=== PATIENT | male | born 1970 | race Caucasian/White ===

== ENCOUNTER 2019-03-20 19:42 | Inpatient (IN) | payer OTHER ==
[~2019-03-20] VITALS: Ht 182.9 cm; Wt 87.5 kg
[~2019-03-20 19:42] MED LIST: AZITHROMYCIN 2250 MG PO; BACTRIM DS TAB1 EACH PO; BACTROBAN CREAM30 G1 TOP; BACTROBAN CREAM30 GM TOP; CIALIS5 MG PO; ROBAXIN 750 MG750 M1 PO; ULTRAM 50MG TAB50 MG PO; WELLBUTRIN SR200 MG PO
[2019-03-20 19:57] VITALS: BP 142/85
[2019-03-20] MEDS ORDERED: WELLBUTRIN SR150 MG PO (20:02)
[2019-03-20 20:35] LABS: URINE BILIRUBIN NEGATIVE (Negative); URINE BLOOD TRACE (Negative); URINE CLARITY CLEAR; URINE COLOR YELLOW; URINE GLUCOSE-RANDOM NEGATIVE (Negative); URINE KETONES NEGATIVE (Negative); URINE LEUKOCYTES-REFLEX NEGATIVE (Negative); URINE PROTEIN NEGATIVE (Negative); URINE UROBILINOGEN 0.2 E.U./dl (0.2-1.0)
[2019-03-20 20:36] LABS: URINE NITRITE-REFLEX POSITIVE (Negative)
[2019-03-20 20:41] LABS: BACTERIA-REFLEX >30 Many /HPF (None Seen)
[2019-03-20 20:42] LABS: AMP/METHAMP Negative (Negative); BARBITURATES Negative (Negative); BENZODIAZEPINES Negative (Negative); COCAINE Negative (Negative); METHADONE Negative (Negative); OPIATES Negative (Negative); PCP Negative (Negative); THC Negative (Negative)
[2019-03-20 20:42] LABS: AMORPHOUS URATES Few /LPF (None Seen); CASTS None Seen /LPF (None Seen); MUCUS None Seen strn/LPF (None Seen); SQUAMOUS NONE SEEN /LPF (0-3); URINE RBC 0-2 Rare /HPF (0-2)
[2019-03-20 20:43] LABS: URINE WBC-REFLEX None Seen /HPF (0-5)
[2019-03-20 21:07] LABS: NUCLEATED RBCS 0 /100WBC
[2019-03-20 21:08] LABS: ABSOLUTE EOSINOPHILS 0.2 thou/uL (0.0-0.7); ABSOLUTE LYMPHOCYTES 1.5 thou/uL (0.8-5.3); ABSOLUTE MONOCYTES 1.7 thou/uL (0.0-1.2); ABSOLUTE NEUTROPHILS 7.7 thou/uL (1.6-8.1); BASOPHILS 0.4 %; EOSINOPHILS 1.6 %; HEMATOCRIT 38.4 % (42.0-52.0); HEMOGLOBIN 13.3 gm/dL (14.0-18.0); LYMPHOCYTES 13.2 %; MCH 30.8 pg (26.0-34.0); MCHC 34.5 g/dL (28.0-37.0); MCV 89.3 fL (80.0-100.0); MONOCYTES 15.3 %; MPV 7.9 fl. (7.2-11.1); PLATELET COUNT* 210 thou/uL (150-400); POLYS 69.5 %; RDW-CV 13.8 % (10.5-14.5); WBC 11.1 thou/uL (4.0-11.0)
[2019-03-20 21:18] LABS: CREATININE 1.1 mg/dL (0.6-1.3); POTASSIUM 3.6 mmol/L (3.5-5.1)
[2019-03-20 21:22] LABS: ALBUMIN 3.1 g/dL (3.4-5.0); TOTAL BILIRUBIN 0.4 mg/dL (<0.1-1.0); TOTAL PROTEIN 7.5 g/dL (6.4-8.2)
[2019-03-20 21:32] LABS: BE 2.8 mmol/L (-2 to +3); PCO2 45.5 mmHg (35.0-45.0); PO2 70.2 mmHg (75.0-100.0); pH 7.408 (7.340-7.450)
[2019-03-20 23:02] VITALS: BP 110/70
[2019-03-20 23:15] VITALS: BP 139/77
--- NOTE | 2019-03-21 01:16 | NUR ---
PT ADMITTED TO ROOM [address] [facility] ER. RECIEVED REPORT FROM [facility] NURSE. PT ALERT AND ORIENTED. . MULTIPLE WOUNDS. PT ON CONTACT ISOLATION. PICTURES TAKEN OF WOUNDS. ADMISSION HX AND ASSESSMENT DOCUMENTED. FALL PRECAUTION IN PLACE DUE RECENT FALLS. PT SAYS HE FEELS INFECTION IS CAUSING UNSTEADY GAIT FOR HIM. PT ON STANDBY ASSIST. CALL LIGHT WITHIN REACH. HOURLY ORUNDINGS MADE. WILL CONTINUE TO MONITOR.
--- NOTE | 2019-03-21 05:23 | NUR ---
PT ALERT AND ORIENTED. VSS ON RA. PT SLEPT THROUGH SHIFT. LFA IV WITH NS @ 100. FALL PRECAUTION IN PLACE. NO PAIN MED GIVEN THIS SHIFT YET PT HAS BEEN SLEEPING. WILL GIVE NEEDED. CALL LIGHT WITHIN REACH. HOURLY ROUNDINGS MADE. WILL CALL IN ID CONSULT THIS AM. WILL CONTINUE PALN OF CARE.
--- NOTE | 2019-03-21 05:49 | NUR ---
PT ALERT AND ORIENTED. VSS ON RA. PT SLEPT THROUGH SHIFT. NO PAIN MEDS GIVEN YET THIS SHIFT. ID CONSULT CALLED IN. PHOTOS OF MULTIPLE BODY WOUNDS TAKEN AND DOCUMENTED. FALL PRECUATION IN PLACE PT HAVE HAD RECENT FALLS. PT ON STANDYBY ASSIST. ISOLATION PRECAUTION IN PLACE UDE TO POSSIBILITY OF WOUNDS BEING INFECTED. CALL LIGHT WITHIN REACH. HOURLY ROUNDINGS MADE. WILL CONTINUE TO MOINTOR.
[2019-03-21 07:50] VITALS: BP 113/54
[2019-03-21 16:00] VITALS: BP 112/67
--- NOTE | 2019-03-21 16:28 | NUR ---
WOUND CARE NOTE: AEROBIC AND ANAEROBIC CULTURES OBTAINED OF LESION TO THE BACK OF HIS NECK.
--- NOTE | 2019-03-21 17:33 | NUR ---
PATIENT RESTING IN BED. PATIENT HAS COMPLAINTS OF PAIN TO WOUNDS, TREATED ADEQUATELY WITH MORPHINE. CULTURES TAKEN BY WOUND NURSE AND SENT TO LAB. BIOPSY SCHEDULED FOR TOMORROW TO BE DONE BY DR GARZA AT BEDSIDE. PATIENT HAS SLEPT MOST OF DAY. PATIENT HAS GOOD APPETITE. PATIENT DENIES ANY NEEDS AT THIS TIME. CALL LIGHT WITHIN REACH.
[2019-03-21 20:10] VITALS: BP 135/76
[2019-03-21 23:08] LABS: HEPATITIS B SURFACE AG Negative (Negative)
[2019-03-22 02:07] LABS: HIV-1/HIV-2 ANTIBODY Non Reactive (Non Reactive)
[2019-03-22 03:08] LABS: IgA 125 mg/dL (90-386); IgG 1157 mg/dL (700-1600); IgM 90 mg/dL (20-172)
--- NOTE | 2019-03-22 05:07 | NUR ---
PT ALERT AND ORIENTED. VSS ON RA. ASSESSMENT DOCUMENTED. PT SLEPT MOST OF SHIFT. AWAITING URINE SAMPLE FOR LAB. ISOLATION PRECAUTION IN PLACE. BLOOD CULTURE CAME BACK THIS AM WITH GRAM POSITIVE SIOBHAN. DR RAMIRES NOTIFIED. NO PAIN MEDS GIVEN YET THIS SHIFT. CALL LIGHT WITHIN REACH. HOURLY ROUNDINGS MADE. WILL CONTINUE TO MONITOR.
[2019-03-22 05:39] LABS: HEMATOCRIT 41.2 % (42.0-52.0); HEMOGLOBIN 13.9 gm/dL (14.0-18.0); MCH 30.4 pg (26.0-34.0); MCHC 33.6 g/dL (28.0-37.0); MCV 90.4 fL (80.0-100.0); RBC 4.56 mil/uL (4.50-6.00); RDW-CV 14.1 % (10.5-14.5); WBC 6.4 thou/uL (4.0-11.0)
[2019-03-22 05:53] LABS: CALCIUM 9.6 mg/dL (8.5-10.1); MAGNESIUM 2.1 mg/dL (1.8-2.4); POTASSIUM 4.1 mmol/L (3.5-5.1)
--- NOTE | 2019-03-22 07:37 | CON ---
[address] [address] CONSULTATION Name: ISAAC LIRA Room: [address] IN .R.#: [id number] Admission: 03/20/19 Attend Phys: Darek Garnett Discharge: Date of : 70 Report #: [id number] THIS REPORT FOR: //name// CC: EVARISTO physician/PCP Omar Gregory DATE OF SERVICE: 03/21/2019 INFECTIOUS DISEASE CONSULTATION ATTENDING PHYSICIAN: Omar Gregory DO REASON FOR EVALUATION: Generalized inflammatory eruption with varying sizes suspected infectious etiology. HISTORY OF PRESENT ILLNESS: Chart reviewed, the patient was examined. This is a 48-year-old gentleman without significant medical history who presented with extensive superficial skin lesions in varying stages excoriated some raised some more macular. He describes burning and itching. He had been on treatment with multiple medicines including Bactrim, doxycycline and clindamycin, none of which made any difference. He was given treatment for ectoparasite, scabies in particular, not clear if he has had significant fevers. He denies any significant pulmonary or gastrointestinal related complaints. In terms of past medical history, he denies any high-risk behavior, although he did call off his engagement because his fiancee at that time had been involved in possible harmful behavior. He does work, denies any particular exposure history to animals. No recent travel. ALLERGIES: PENICILLIN, WHICH CAUSES URTICARIA, CODEINE, ACETAMINOPHEN. MEDICATIONS: Includes ibuprofen, promethazine, ondansetron, bisacodyl, melatonin, morphine as needed, was given dose of vancomycin and ceftriaxone. PAST MEDICAL HISTORY: Otherwise, unremarkable. PREVIOUS SURGERIES: History of MRSA, history of endocarditis, depression, anxiety, herniated disk, chronic back pain. SOCIAL HISTORY: Smokes half pack per day. No illicit drug use. No ethanol. No high risk sexual behavior. FAMILY HISTORY: Noncontributory. REVIEW OF SYSTEMS: As above. PHYSICAL EXAMINATION: [place] [address] CONSULTATION Name: ISAAC LIRA Room: [address]#: [id number] Admission: 03/20/19 Attend Phys: Darek Garnett Discharge: Date of : 70 Report #: [id number] GENERAL: He is alert, cooperative, appropriate, mild distress secondary to the generalized discomfort. SKIN: Prominent skin lesions innumerable involving the limbs, face, the lower part of the torso, some of which are excoriated. There are no bullous lesions at this point. HEENT: Normocephalic. Extraocular muscles intact. NECK: Supple. LUNGS: Generally clear to auscultation bilaterally. HEART: Regular rate and rhythm without murmur. ABDOMEN: Soft, nontender, nondistended. EXTREMITIES: No cyanosis. GENITOURINARY: Deferred. RECTAL: Deferred. LABORATORY DATA: Blood cultures sterile thus far. ABGs: pH 7.408, pCO2 of 45.5, pO2 of 70.2 that is 88% on room air. Lactic acid 0.9. Electrolytes: Sodium 134, potassium 3.6, chloride 198, bicarbonate is 30, anion gap of 6, BUN and creatinine 13 and 1.3, glucose of 151. AST of 4.5, ALT of 56. Albumin 3.1, total protein of 7.5. Estimated GFR of 71. Chest x-ray: No acute process. CBC: White count of 11.1, H and H 13.3 and 38.4, platelets of 210 with 13.2% lymphocytes, which equated to lymphocyte total count of 1500. Urinalysis otherwise unremarkable. Drug screen unremarkable. ASSESSMENT AND PLAN: Disseminated maculopapular type eruption with varying stages some are quite large plaque-like seems less likely to me that this is infectious etiology short of something that is disseminated like an endocarditis would be concerned about other infections to discuss. We will check some serologies, HIV, syphilis. Noted plans for biopsy, I think that is an excellent idea that may give us some clue at the peripheral smear and does not look particularly consistent with a leukemic process. We will discuss with hospitalist. <ELECTRONICALLY SIGNED> By: Romero Cordova MD 03/22/19 0737 1612 [id number] Cordova MD /nt
[2019-03-22 08:00] VITALS: BP 142/72
--- NOTE | 2019-03-22 14:49 | NUR ---
Pt lives at home with dtr. No known dc needs anticipated at this time. SW/CM to remain available to assist with safe dc planning if needs arise.
[2019-03-22 16:00] VITALS: BP 129/75
--- NOTE | 2019-03-22 18:44 | NUR ---
ASSESSMENT COMPLETE. PT ALERT AND ORIENTED X4. PT HAD BEDSIDE BIOPSY DONE WITH VASCULAR DR THIS AFTERNOON. IV VANC GIVEN SCHEDULED. ECHO COMPLETED. PT GIVEN PRN MORPHINE NEEDED FOR PAIN. IV IN LEFT FA, SL. PT IS UP STANDBY ASSIST. SEE ASSESSMENT AND VITALS FOR OTHER DETAILS. CALL LIGHT WITHIN REACH, WILL CONTINUE PLAN OF CARE
--- NOTE | 2019-03-22 18:46 | 2DMMODE ---
[place] [address] 2 D/M-MODE ECHOCARDIOGRAM Name: ISAAC LIRA Room: [address] IN [facility]#: [id number] Admission: 03/20/19 Attend Phys: Omar Gregory Discharge: Date of : 70 Date of Service: 03/22/19 1846 Report #: [id number] THIS REPORT FOR: //name// APPROVED REPORT Study performed: 03/22/2019 14:13:09 EXAM: Comprehensive 2D, Doppler, and color-flow Echocardiogram Patient Location: In-Patient Room #: [facility] Status: routine BSA: 2.10 HR: 67 bpm BP: 142/72 mmHg Rhythm: NSR Other Information Study Quality: Good Indications Sepsis Fever 2D Dimensions IVSd: 11.04 (7-11mm) LVOT Diam: 20.69 (18-24mm) LVDd: 48.52 mm PWd: 11.10 (7-11mm) Ascending Ao: 27.69 (22-36mm) LVDs: 30.07 (25-40mm) Aortic Root: 31.74 mm Volumes Left Atrial Volume (Systole) LA ESV Index: 24.10 mL/m2 Aortic Valve AoV Peak Zain.: 1.71 m/s AO Peak Gr.: 11.71 mmHg LVOT Max P.45 mmHg AO Mean Gr.: 5.22 mmHg LVOT Mean P.65 mmHg LVOT Max V: 1.69 m/s AO V2 VTI: 32.71 cm LVOT Mean V: 0.97 m/s VEGA (VTI): 3.25 cm2 LVOT V1 VTI: 31.67 cm Mitral Valve E/A Ratio: 1.50 MV Decel. Time: 189.12 [place] [address] 2 D/M-MODE ECHOCARDIOGRAM Name: ISAAC LIRA Room: [address] IN [facility]#: [id number] Admission: 03/20/19 Attend Phys: Omar Gregory Discharge: Date of : 70 Date of Service: 03/22/19 1846 Report #: [id number] MV E Max Zain.: 0.91 m/s MV PHT: 54.85 ms MVA (PHT): 4.01 cm2 TDI E/Lateral E': 4.33 E/Medial E': 8.27 Medial E' Zain.: 0.11 m/s Lateral E' Zain.: 0.21 m/s Pulmonary Valve PV Peak Zain.: 1.19 m/s PV Peak Gr.: 5.71 mmHg Left Ventricle The left ventricle is normal size. There is normal LV segmental wall motion. There is normal left ventricular wall thickness. Left ventricular systolic function is normal. The left ventricular ejection fraction is within the normal range. LVEF is 60-65%. The left ventricular diastolic function is normal. Right Ventricle The right ventricle is normal size. The right ventricular systolic function is normal. Atria The left atrium size is normal. The right atrium size is normal. Aortic Valve Mild aortic valve sclerosis. Trace aortic regurgitation. There is no aortic valvular stenosis. Mitral Valve The mitral valve is normal in structure. Trace mitral regurgitation. No evidence of mitral valve stenosis. Tricuspid Valve The tricuspid valve is normal in structure. Unable to assess PA pressure. Trace tricuspid regurgitation. Pulmonic Valve The pulmonary valve is normal in structure. There is no pulmonic valvular regurgitation. Great Vessels The aortic root is normal in size. IVC is normal in size and collapses >50% [place] [address] 2 D/M-MODE ECHOCARDIOGRAM Name: ISAAC LIRA Room: [address] IN [facility]#: [id number] Admission: 03/20/19 Attend Phys: Omar Gregory Discharge: Date of : 70 Date of Service: 03/22/19 1846 Report #: [id number] Pericardium There is no pericardial effusion. <Conclusion> The left ventricle is normal size. There is normal left ventricular wall thickness. Left ventricular systolic function is normal. The left ventricular ejection fraction is within the normal range. LVEF is 60-65%. The left ventricular diastolic function is normal. The right ventricle is normal size. The left atrium size is normal. Mild aortic valve sclerosis. Trace aortic regurgitation. There is no aortic valvular stenosis. The mitral valve is normal in structure. The tricuspid valve is normal in structure. IVC is normal in size and collapses >50% with inspiration. There is no pericardial effusion. There is normal LV segmental wall motion. <ELECTRONICALLY SIGNED> By: Fly Reyna MD, FACC 03/22/191845 45 45 Fly Reyna MD, FACC /INF
[2019-03-22 20:00] VITALS: BP 118/75
[2019-03-23 05:18] LABS: CALCIUM 8.6 mg/dL (8.5-10.1); CREATININE 0.9 mg/dL (0.6-1.3); MAGNESIUM 1.8 mg/dL (1.8-2.4); POTASSIUM 4.1 mmol/L (3.5-5.1)
[2019-03-23 08:15] VITALS: BP 116/78
--- NOTE | 2019-03-23 12:51 | NUR ---
PATIENT WAS FOUND MISSING FROM ROOM AND UNIT AT 1210. NURSING SHIP RIGGER AND SECURITY INFORMED. BELONGINGS STILL IN ROOM. IV HAD BEEN REMOVED FOR SITE ROTATION, SO NO IV IN PATIENT AT TIME OF PATIENT BEING OFF UNIT. PATIENT RETURNED TO ROOM AT 1250. PATIENT WAS EDUCATED ON NOT LEAVING THE UNIT. PATIENT STATED DOCTOR TOLD HIM TO WALK AROUND. PATIENT INFORMED HE IS ONLY TO WALK AROUND UNIT AND THAT HE IS NOT TO LEAVE UNIT BY STAIRS OR ELEVATOR. PATIENT STATED UNDERSTANDING. SECURITY AND NURSING SHIP RIGGER INFORMED OF PATIENT'S RETURN TO ROOM.
--- NOTE | 2019-03-23 17:25 | NUR ---
PATIENT RESTING IN BED. PATIENT IS UP AD JUANPABLO IN ROOM. PATIENT HAS COMPLAINTS OF GENERALIZED PAIN TO WOUNDS, TREATED ADEQUATELY WITH MEDICATION. PATIENT RECEIVED IV ANTIBIOTICS ORDERED. NEW IV PLACED THIS AFTERNOON PER PATIENT REQUEST. PATIENT HAS GOOD APPETITE. PATIENT DENIES ANY NEEDS AT THIS TIME. CALL LIGHT WITHIN REACH.
[2019-03-23 17:28] VITALS: BP 117/68
[2019-03-23 20:00] VITALS: BP 119/64
[2019-03-24 05:40] LABS: CALCIUM 8.6 mg/dL (8.5-10.1); MAGNESIUM 1.7 mg/dL (1.8-2.4); POTASSIUM 4.1 mmol/L (3.5-5.1)
--- NOTE | 2019-03-24 05:54 | NUR ---
PT ALERT AND ORIENTED. VSS ON RA. UP AD JUANPABLO. ASSESSMENT DOCUMENTED. PT SLEPT WELL THIS SHIFT. PAIN MEDS GIVEN THIS SHIFT. ISOLATION PRECAUTION IN PLACE. URINE SAMPLE COLLECTED AGAIN FOR HISTOPLASMA ANTIGEN TEST. CALL LIGHT WITHIN REACH. HOURLY ROUNDINGS MADE. WILL CONTINUE TO MONITOR.
[2019-03-24 07:50] VITALS: BP 113/63
[2019-03-24 14:10] LABS: HCV QUANT BY PCR 7850000 IU/mL (())
[2019-03-24 16:33] VITALS: BP 139/76
--- NOTE | 2019-03-24 17:43 | NUR ---
PATIENT RESTING IN BED. PATIENT IS UP AD JUANPABLO IN ROOM AND WALKS IN HALLS. PATIENT ADMITTED TO SMOKING IN [place]. SECURITY SPOKE WITH PATIENT INFORMING HIM NOT TO SMOKE IN HOSPITAL. PATIENT HAS HAD COMPLAINTS OF GENERAL PAIN TO WOUNDS, TREATED ADEQUATELY WITH MORPHINE. PATIENT DENIES ANY NEEDS AT THIS TIME. CALL LIGHT WITHIN REACH.
[2019-03-24 20:30] VITALS: BP 125/68
--- NOTE | 2019-03-25 05:27 | NUR ---
PT SLEPT FAIRLY WELL OVERNIGHT. UP AD JUANPABLO IN ROOM VOIDING WITHOUT DIFFICULTY. LAC IV SL, ABX GIVEN ORDERED. AM LAB DRAWN. REMAINS ON CONTACT ISOLATION, WOUND CULTURE PENDING. RECEIVING MORPHINE FOR COMPLAINTS OF PAIN WITH GOOD RESULT. ABLE TO USE CALL LITE AND MAKE NEEDS KNOWN.
[2019-03-25 07:19] VITALS: BP 126/73
[2019-03-25 10:40] VITALS: BP 125/68
[2019-03-25 12:10] LABS: ANA INTERPRETATION Negative (Negative)
[2019-03-25 16:00] VITALS: BP 134/81
--- NOTE | 2019-03-25 17:24 | NUR ---
ASSESSMENT COMPLETE. PT ALERT AND ORIENTED X4. PT IS UP AD JUANPABLO. ABX GIVEN SCHEDULED. ISOLATION DC'D PER INFECTIOUS NURSE PROTOCOL. PT HAD SHOWER THIS EVENING. PRN PAIN MEDICATION GIVEN NEEDED. DENIES N/V. TOLERATING MEALS. SEE ASSESSMENT AND VITALS FOR OTHER DETAILS. CALL LIGHT WITHIN REACH, WILL CONTINUE PLAN OF CARE
[2019-03-25 19:45] VITALS: BP 117/80
--- NOTE | 2019-03-26 06:18 | NUR ---
PT HAS SLEPT OFF AND ON OVERNIGHT, UP AMBULATING IN HALLS WITH STEADY GAIT. RECEIVING PAIN MED X2 THIS SHIFT WITH GOOD RELIEF. LAC SL IV, ABX GIVEN ORDERED. AM LABS. PT ANTICIPATING DISCHARGE HOME TODAY TO FOLLOW UP OUTPT. ABLE TO USE CALL LITE AND MAKE NEEDS KNOWN.
[2019-03-26 08:10] VITALS: BP 119/79
[2019-03-26] MEDS ORDERED: TRAMADOL 50 MG50 MG PO (08:24)
[2019-03-26] MEDS ORDERED: KEFLEX500 M1 PO (08:24)
[2019-03-26 13:13] VITALS: BP 125/68
[2019-03-26 14:08] VITALS: BP 125/68
--- NOTE | 2019-03-26 14:23 | NUR ---
PATIENT ALERT AND ORIENTED X4. PATIENT AMBULATING IN HALLWAY THROUGHOUT SHIFT. PATIENT ASKED IF HE COULD DRIVE HIMSELF HOME. RN PROVIDED EDUCATION ON NOT DRIVING DUE TO PAIN MEDICATIONS. PATIENT REPORTED HIS FREIND WOULD PICK HIM UP. IV REMOVED. PATIENT GIVEN ALL DISCHARGE PAPERWORK AND PRESCRIPTIONS. RN REPORTED WE WILL WALK PATIENT OUT WHEN HIS RIDE ARRIVES. PATIENT LEFT UNIT WITHOUT NOTIFYING STAFF. NURSING DIRECTOR OF EPIDEMIOLOGY AWARE.
[2019-03-26 14:27] VITALS: BP 125/68
[2019-03-26 15:33] VITALS: BP 125/68
--- NOTE | 2019-03-29 18:06 | PATH ---
[address] [address] PATHOLOGY RPT PROCEDURE Name: WILEY LIRA Room: [address] IN M.R.#: [id number] Admission: 03/20/19 Date of : 70 Discharge: 03/26/19 Report #: [id number] Path Case #: [id number] [facility] Accession Number: [id number] . 01 Material submitted: . body - MULTIPLE SKIN ABSCESSES . 01 Clinical history: . Multiple skin abscesses with cellulitis and fever . 02 Diagnosis: Multiple pieces of skin and soft tissue, designated as "body": - Fat necrosis with acute and chronic inflammation and exuberant overlying scale crust, fragmented. There is no evidence of malignancy. (See comment). (OLIVER:pooja; 03/29/2019) MBR 03/29/2019 1034 Local . 02 Comment: On review of the patient's clinic notes, the biopsy is designated "excision of skin lesions right medial calf for pathology". . The case was evaluated with a PAS stain for fungus, performed with an appropriate positive control, which is negative. . A specific diagnosis cannot be rendered on the material submitted. Nonspecific findings of fat necrosis with acute and chronic inflammation and overlying exuberant scale crust is present. The dermal changes may be secondary to an adjacent ulceration. Please correlate clinically and with culture results. . This case has also been co-reviewed by a second board-certified dermatopathologist, Dr. Cancino, with consensus. . (SAS:prosthetic lab technician; 03/29/2019) . Special stain: PAS fungus: Negative . 02 Electronically signed: . Augustina Kaur MD, Pathologist NPI- [id number] . 01 Gross description: . The specimen is received in formalin, labeled "Wiley Liraflorian". The specimen is additionally labeled on the requisition as, "multiple skin abscesses". Per the verification form, no specific source is listed except body/skin". Received are multiple segments of dusky poole-brown possible skin measuring 1.5 x 1.4 x 0.5 cm in [place] [address] PATHOLOGY RPT PROCEDURE Name: WILEY LIRA Room: [address] IN M.R.#: [id number] Admission: 03/20/19 Date of : 70 Discharge: 03/26/19 Report #: [id number] Path Case #: [id number] specimen is submitted entirely in cassette A1. (CAA; 03/26/2019) QAC/QAC 03/26/2019 0947 Local . 02 Pathologist provided ICD-10: L08.9, R23.8 . 02 CPT . 979363, 605085 Specimen Comment: A courtesy copy of this report has been sent to [phone] Specimen Comment: Report sent to Performed at: 01 [facility] [address], [place] [id number] MD Fransisco More MD Phone: [phone] Performed at: [address] [facility] [address] [place] [id number] MD Augustina Kaur MD Phone: [phone]
== END 2019-03-26 14:30 | disposition home or self-care (01) | DRG 854 ==
LOC: M.ERS 19:42 → M.TBA-ER 22:09 → M.3W 22:09
PROVIDERS: Internal Medicine; Personal Emergency Response Attendant; Specialist; ADMIT Internal Medicine
PROC: 0QBB0ZX Excision of Right Lower Femur, Open Approach, Diagnostic (ICD-10-PCS; principal; 2019-03-22)
DX: A40.0 Sepsis due to streptococcus, group A (principal); N39.0 Urinary tract infection, site not specified; E44.1 Mild protein-calorie malnutrition; L03.115 Cellulitis of right lower limb; G89.29 Other chronic pain; M54.9 Dorsalgia, unspecified; F17.210 Nicotine dependence, cigarettes, uncomplicated; F32.9 Major depressive disorder, single episode, unspecified; F41.9 Anxiety disorder, unspecified; M47.892 Other spondylosis, cervical region; B19.20 Unspecified viral hepatitis C without hepatic coma; D89.1 Cryoglobulinemia; B96.89 Other specified bacterial agents as the cause of diseases classified elsewhere; Z88.6 Allergy status to analgesic agent; Z88.0 Allergy status to penicillin; Z88.8 Allergy status to other drugs, medicaments and biological substances; Z86.14 Personal history of Methicillin resistant Staphylococcus aureus infection; Z68.26 Body mass index [BMI] 26.0-26.9, adult; Z23 Encounter for immunization

== ENCOUNTER 2019-04-20 22:10 | Emergency (ER) | payer OTHER ==
[~2019-04-20] VITALS: Ht 182.9 cm; Wt 88.5 kg
[~2019-04-20 22:10] MED LIST changes: +KEFLEX500 M1 PO; +TRAMADOL 50 MG50 MG PO; +WELLBUTRIN SR150 MG PO
[2019-04-20] MEDS ORDERED: KEFLEX500 M1 PO ×2 (22:57→22:58)
[2019-04-20] MEDS ORDERED: DIPHENHIST50 MG PO ×2 (22:57→22:58)
[2019-04-20 23:05] VITALS: BP 126/75
== END 2019-04-20 23:06 | disposition home or self-care (01) ==
LOC: M.ERS 22:10
DX: L53.9 Erythematous condition, unspecified (principal); G89.29 Other chronic pain; F17.210 Nicotine dependence, cigarettes, uncomplicated; Z88.0 Allergy status to penicillin; Z88.6 Allergy status to analgesic agent; Z88.5 Allergy status to narcotic agent; Z86.14 Personal history of Methicillin resistant Staphylococcus aureus infection